=== PATIENT | female | born 1990 ===

== ENCOUNTER 2023-11-01 04:09 | Day surgery (SDC) | payer BC ==
[2023-10-25 16:24] VITALS: BMI 20.5
[2023-11-01] MEDS ORDERED: MIDAZOLAM HCL 2 MG/2 ML SINGLE DOSE VIAL ONE ×2 (09:42→10:05)
[2023-11-01] MEDS ORDERED: PROPOFOL 20 ML ONE (10:06)
[2023-11-01] MEDS: ceFAZolin SODIUM 1 GM VIAL IVPB ONE (10:20)
[2023-11-01] MEDS: IODINE/POTASSIUM IODIDE 5%/10% 14 ML BOTTLE NR ONE (10:21)
[2023-11-01] MEDS ORDERED: ceFAZolin SODIUM 1 GM VIAL ONE (10:24)
[2023-11-01] MEDS ORDERED: GLYCOPYRROLATE 0.2 MG/1 ML VIAL ONE (10:24)
[2023-11-01] MEDS ORDERED: DEXAMETHASONE SOD PHOSPHATE 4 MG/1 ML VIAL ONE (10:24)
[2023-11-01] MEDS ORDERED: LIDOCAINE HCL/PF 2% SDV 5ML VIAL ONE (10:24)
[2023-11-01] MEDS ORDERED: ONDANSETRON 4 MG/2 ML VIAL ONE (10:24)
[2023-11-01] MEDS ORDERED: KETOROLAC TROMETHAMINE 30 MG/1 ML VIAL ONE (10:24)
[2023-11-01] MEDS ORDERED: ONDANSETRON 4 MG/2 ML VIAL IVPUSH PRN (10:58)
[2023-11-01] MEDS ORDERED: oxyCODONE HCL 5 MG TABLET PO PRN (10:58)
[2023-11-01] MEDS: FERRIC SUBSULFATE 500 ML BOTTLE TP ONE (11:00)
[2023-11-01] MEDS ORDERED: LACTATED RINGERS SOLUTION 1,000 ML IV SCH (11:00)
[2023-11-01] MEDS ORDERED: ACETAMINOPHEN 325 MG TABLET (FP) PO PRN (11:29)
[2023-11-01] MEDS ORDERED: IBUPROFEN 400 MG TABLET (FP) PO PRN (11:29)
[2023-11-01 13:04] VITALS: RESP 18
[2023-11-01 14:01] VITALS: BP 100/60; PULSE 62; TEMP 98.2
== END 2023-11-01 14:30 | disposition home or self-care (01) ==
LOC: JASU-SURG 04:09
PROVIDERS: ATTEND Obstetrics & Gynecology
PROC: 0UBC8ZX Excision of Cervix, Via Natural or Artificial Opening Endoscopic, Diagnostic (ICD-10-PCS; principal; 2023-11-01 09:30)
PROC: 0UB98ZZ Excision of Uterus, Via Natural or Artificial Opening Endoscopic (ICD-10-PCS; 2023-11-01 09:30)
DX: N87.9 Dysplasia of cervix uteri, unspecified (principal); N72 Inflammatory disease of cervix uteri; N84.0 Polyp of corpus uteri; D25.9 Leiomyoma of uterus, unspecified; N88.2 Stricture and stenosis of cervix uteri; R87.810 Cervical high risk human papillomavirus (HPV) DNA test positive
CPT/HCPCS: 81025; 86850; 86900; 86901; 88305-TC; 88307-TC; 88341-TC; 88342-TC; 94760